=== PATIENT | male | born 1950 ===

== ENCOUNTER 2017-08-10 06:35 | Day surgery (SDC) | payer MEDICARE, OTHER ==
[2017-08-05 12:27] VITALS: BMI 28.4
[2017-08-10 07:09] LABS: BASO # 0.04 K/mm3 (0.0-2.0); BASO % 0.5 % (0.0-3.0); EOS # 0.3 (0.0-0.7); EOS % 4.5 % (1.5-5.0); GRAN % 66.6 % (50.0-68.0); HEMOGLOBIN 9.6 g/dL (14.0-18.0); LYMPH # 1.7 (1.2-3.4); LYMPH % 21.9 % (22.0-35.0); MEAN CELL VOLUME 80.9 fl (80.0-105.0); MEAN CORPUSCULAR HEMOGLOBIN 24.7 pg (25.0-35.0); MEAN CORPUSCULAR HGB CONC 30.6 g/dl (31.0-37.0); MEAN PLATELET VOLUME 10.1 fl (7.0-11.0); MONO # 0.5 (0.1-0.6); MONO % 6.5 % (1.0-6.0); RBC 3.88 10^6/uL (3.5-6.1); RED CELL DISTRIBUTION WIDTH 13.4 % (11.5-14.5); WHITE BLOOD COUNT 7.5 10^3/ul (4.5-11.0)
[2017-08-10 07:22] LABS: BLOOD UREA NITROGEN 27 mg/dL (7-21); CALCIUM 9.5 mg/dL (8.4-10.5); GFR AFRICAN-AMERICAN > 60; GFR NON-AFRICAN AMERICAN > 60; HDL CHOLESTEROL 42 mg/dL (29-60)
[2017-08-10 07:29] LABS: INR 1.03 (0.93-1.08); PARTIAL THROMBOPLASTIN TIME 30.3 Seconds (25.1-36.5); PROTHROMBIN TIME 11.8 SECONDS (9.4-12.5)
[2017-08-10 07:33] LABS: LDL CHOLESTEROL 122 mg/dL (0-129)
[2017-08-10] MEDS ORDERED: Lidocaine 2% Inj (20ml) ONE (07:35)
[2017-08-10] MEDS ORDERED: Iodixanol 320 MG/ML 200 ML BOTTLE IV ONE (07:36)
[2017-08-10] MEDS ORDERED: Iodixanol 320 MG/ML 100 ML BOTTLE IV ONE (07:36)
[2017-08-10] MEDS ORDERED: Iohexol 350mgl/ml 50 ML ONE (07:36)
[2017-08-10] MEDS ORDERED: Phenylephrine 10 mg/ml Inj ONE (07:37)
[2017-08-10] MEDS ORDERED: Midazolam 2 MG/2 ML VIAL ONE (07:42)
[2017-08-10] MEDS ORDERED: Sodium Chloride 0.9% 1,000 ML IV SCH (08:45)
[2017-08-10 09:02] VITALS: TEMP 97.6
--- NOTE | 2017-08-10 09:05 | HP ---
REFERRING PHYSICIAN: Brandon Hernandes MD REASON FOR ADMISSION: Left heart cath, possible angioplasty, abnormal stress test, history of coronary artery disease. BRIEF CLINICAL HISTORY: This is a 67-year-old male with past medical history significant for coronary artery disease, status post bypass in 2002, who had recently abnormal stress test that showed abnormal myocardial perfusion study, apical defect appears new, reversible apical defect, suspicious ischemia with ejection fraction of %. Patient is scheduled for elective cardiac catheterization, possible angioplasty. PAST MEDICAL HISTORY: Patient's past history is significant for coronary artery disease, status post CABG in 2002, history of cardiac catheterization on 10/29/2015 that revealed patent HOLT to LAD, proximal LAD 100% occluded, proximal circ and OM1 95% stenosis, mid RCA has 95% stenosis, preserved LV function. Successful PTCA with a drug-eluting stent, was done in circumflex and OM1, V-stent. Patient then staged for RCA and RPDA and underwent stenting of proximal to mid RCA and plain balloon angioplasty of distal RCA dated 11/26/2015. Patient is very stable at recent stress test dated 07/15/2017, abnormal. The patient is scheduled for elective cardiac cath and possible angioplasty. Past history is significant for coronary artery disease, one-vessel coronary artery bypass, HOLT to LAD in 2002. Then, patient had PTCA of circumflex and OM1, V-stent, 10/29/2015 followed by 11/26/2015, patient had a stent in proximal to mid RCA and RPDA. At that time, found to be single-vessel disease RCA and at that time cardiac catheterization revealed patent stent in circ and OM1 placed on 10/29/2015, preserved LV function, ejection fraction 55%, EDP was in the range of 25 to 30. Patent HOLT to LAD on last catheterization. Successful PTCA with two drug-eluting stents, proximal mid RCA and plain balloon angioplasty of distal RCA was done 11/26/2015. PAST SURGICAL HISTORY: Significant for coronary artery bypass in 2002, cataract surgery, history of fracture, hip internal fixation, history of PTCA circumflex and OM1 on 10/29/2015 and history of PTCA of right coronary artery on 11/26/2015. CURRENT MEDICATIONS: Patient is taking omeprazole, multivitamin, metoprolol, lisinopril, hydrochlorothiazide, diclofenac, clopidogrel, calcium, and aspirin. ALLERGIES: NO KNOWN DRUG ALLERGIES. REVIEW OF SYSTEMS: As per HPI. PHYSICAL EXAMINATION: VITAL SIGNS: As follows: Temperature afebrile, heart rate 61, blood pressure 101/70. HEENT: PERRLA. Extraocular muscles intact. NECK: Supple. No carotid bruit. No thyromegaly. CHEST: Clear to auscultation. HEART: S1 and S2 regular. ABDOMEN: Soft. EXTREMITIES: Clubbing and cyanosis negative. LABORATORY DATA: Blood workup pending. IMPRESSION AND PLAN: Abnormal stress test showing apical ischemia, which his new since previous stress test dated 10/06/2015. Patient had a coronary artery bypass surgery in 2002 and then patient had a percutaneous transluminal coronary angioplasty of circumflex and OM1 in and 11/2015, had stent of right coronary artery. Risks, benefits, and alternatives were discussed with the patient. Patient agreed and we will proceed for cardiac catheterization. Further recommendations after cardiac catheterization. We will get the blood workup. If the blood workup is within normal limit, we will proceed for cardiac catheterization. Irvin Bazan MD cc: Irvin Haley MD; Brandon Hernandes M.D.
--- NOTE | 2017-08-10 09:23 | CPOSTOP ---
DATE: CARDIAC CATH POSTPROCEDURE NOTE PHYSICIAN: Irvin Bazan MD GENERAL TELLER: SHAVON Valdovinos, hemodialysis technician. TYPE OF ANESTHESIA USED: Moderate conscious sedation. Total dose used 2 mg of Versed, 100 mcg of fentanyl, periodically, started 1 mg of Versed and 50 of fentanyl. PREOPERATIVE DIAGNOSES: Unstable angina, abnormal stress test, history of coronary artery disease, coronary artery bypass graft and stent. PROCEDURE PERFORMED: Left heart catheterization, complete; left internal mammary injection. FINDINGS: Patent HOLT, patent all stent previously. FINAL DIAGNOSES: Multivessel coronary artery disease, patent stent, patent left internal mammary artery. POST PROCEDURE CONDITION: The patient is stable. VASCULAR ACCESS SITE: Right femoral artery. CLOSURE DEVICE: Mynx, applied. TOTAL RADIATION DOSE: 5058.2 milligray unit. FLUORO TIME: 2.9 minute. Irvin Bazan MD
--- NOTE | 2017-08-10 11:00 | CARD ---
APPROVED REPORT EKG Measurement Heart [id number] CT 160P12 [id number] <Conclusion> Sinus bradycardia Minimal voltage criteria for LVH, may be normal variant Borderline ECG
[2017-08-10 12:01] VITALS: BP 118/66; PULSE 64; RESP 20; O2SAT 97
--- NOTE | 2017-08-10 15:12 | CARD ---
APPROVED REPORT Procedure(s) performed: Left Heart Catheterization HOLT Angiogram HISTORY The patient is a 67 year-old male with a history of : most recent EF: 65%. (EF Method: RADIONUCLIDE), previous diagnostic cath, tobacco history() : The patient is a former smoker , previous PCI (The PCI date was 11/26/2015), hypertension , previous CABG (The CABG date was 04/20/2002), dyslipidemia . INDICATION The indication(s) include : positive stress test, Apical reversible ischemia, new since last stress test 10/05/2014.. CASE TECHNIQUE The patient was brought electively to the Cardiac Catheterization Laboratory in a fasting state and was prepped and draped in a sterile manner. The right femoral groin was infiltrated with 2% Lidocaine subcutaneous anesthesia. A 6 Fr x 10 cm [place] sheath was inserted into the right femoral artery without difficulty. Coronary angiography was performed using coronary diagnostic catheters. The left coronary system was accessed and visualized with a Diagnostic , 6F JL4 CATH DXT 100 CM catheter. The right coronary system was accessed and visualized with a Diagnostic ,6F JR 4 CATH DXT 100 CM catheter. The left ventricle was accessed and visualized with a 6F PIGTAIL 145 CATH DXT 110 CM catheter. Left ventricular/Aortic Valve gradient assessed on pullback. Left ventriculogram was performed in CHEN projection. Closure device was deployed with a 6 Fr / 7 Fr MynxGrip without any complications. The patient tolerated the procedure well and there were no complications associated with the procedure. Vessel Analysis The patient's coronary anatomy is co-dominant. The left main coronary artery is a medium size vessel with diffuse calcification noted throughout this vessel and without significant stenosis. The left main bifurcates to the left anterior descending and circumflex. The left anterior descending artery is a medium size vessel with diffuse calcification noted throughout this vessel and with significant stenosis. There is a 100% stenosis in the proximal segment. The first diagonal branch is a medium size vessel with diffuse calcification noted throughout this vessel and without significant stenosis. The circumflex artery is a size vessel with diffuse calcification noted throughout this vessel and without significant stenosis. The first obtuse marginal branch is a small size vessel with diffuse calcification noted throughout this vessel and without significant stenosis. The second obtuse marginal branch is a large size vessel with diffuse calcification noted throughout this vessel and without significant stenosis. patent stent proximally The left posterior descending artery is a medium size vessel with diffuse calcification noted throughout this vessel and without significant stenosis. The right coronary artery is a medium size vessel with diffuse calcification noted throughout this vessel and without significant stenosis. patent stent proximally. The right posterior descending artery is a medium size vessel with diffuse calcification noted throughout this vessel and without significant stenosis. The right posterolateral branch is a small size vessel with diffuse calcification noted throughout this vessel and without significant stenosis. Left Ventricle The left ventricle is normal in size with normal contractility. There was no cardiomyopathy. The left ventricular ejection fraction is estimated to be 55-60%%. The left ventricular end diastolic pressure is 18 mmHg. There was no gradient across the aortic valve upon pullback. Conclusion [place] triple vessel Diz Patent HOLT to lAD (CABG 2002) Patent stent in Cx/ OM2 ( 10/2015) Patent stent in proximal RCA ( 11/2015) Preserved LV Fx. EF-55-60%, EDP_18 mmof Hg. Recommendations Medical Therapy Continue diuretics CC; Brandon Barros / Tera
== END 2017-08-10 14:15 | disposition home or self-care (01) ==
LOC: CATH 06:35
PROVIDERS: ATTEND Internal Medicine Cardiovascular Disease
DX: I25.110 Atherosclerotic heart disease of native coronary artery with unstable angina pectoris (principal); I10 Essential (primary) hypertension; E78.5 Hyperlipidemia, unspecified; I25.82 Chronic total occlusion of coronary artery; R94.39 Abnormal result of other cardiovascular function study; Z79.82 Long term (current) use of aspirin; Z87.891 Personal history of nicotine dependence; Z95.1 Presence of aortocoronary bypass graft; Z95.5 Presence of coronary angioplasty implant and graft
CPT/HCPCS: 36415; 80048; 80061; 85025; 85610; 85730; 86850; 86900; 93005; 93459; 99152; 99153; C1760; C1769; C1894; J1644; J1940; J2250; J3010; J7030; J7040; Q9966